=== PATIENT | male | born 1975 | race Hispanic/Latino ===

== ENCOUNTER 2016-09-08 06:18 | Day surgery (SDC) | payer OTHER ==
[2016-09-08] MEDS ORDERED: ECOTRIN PO ONE (06:50)
[2016-09-08] MEDS ORDERED: NACL 0.9% 500 ML 500 ML IV SCH (07:00)
[2016-09-08 07:13] LABS: Basophils % (Auto) 0.6 % (0.0-1.8); Eosinophils % (Auto) 1.2 % (0.0-4.3); Hematocrit 50.5 % (35.5-45.6); Hemoglobin 16.9 gm/dl (11.8-15.2); Mean Corpuscular HGB Conc 33 % (32-34); Mean Corpuscular Hemoglobin 28 pg (28-32); Mean Corpuscular Volume 84 fl (84-94); Platelet Count 165 K/mm3 (140-440); Red Blood Count 5.98 M/mm3 (3.65-5.03); White Blood Count 10.5 K/mm3 (4.5-11.0)
[2016-09-08 07:23] LABS: INR 0.94 (0.87-1.13)
[2016-09-08 07:29] LABS: Anion Gap 19 mmol/L; BUN/Creatinine Ratio 13.33; Blood Urea Nitrogen 12 mg/dL (9-20); Carbon Dioxide 27 mmol/L (22-30); Chloride 97.8 mmol/L (98-107); Glucose 115 mg/dL (75-100); Sodium 140 mmol/L (137-145)
[2016-09-08] MEDS ORDERED: HEPARIN/NS 5000 UNIT/500ML(CATH LAB) 1,000 ML IR ONE (09:29)
[2016-09-08] MEDS ORDERED: NITROGLYCERIN SYRINGE 3 ML ONE (09:30)
[2016-09-08] MEDS: SUBLIMAZE ONE ×2 (09:47→09:55)
[2016-09-08] MEDS: VERSED ONE ×2 (09:47→09:55)
[2016-09-08] MEDS: XYLOCAINE 2% INFILTRATI ONE ×2 (09:47→09:55)
[2016-09-08] MEDS: HEPARIN 10,000 UNITS/10 ML ONE ×2 (09:49→09:58)
[2016-09-08] MEDS: CALAN ONE ×2 (09:49→09:58)
--- NOTE | 2016-09-08 10:23 | Short Stay Summary ---
Short Stay Documentation - History H&P: obtained from office - Allergies and Medications Current Medications: Allergies latex Allergy (Verified 04/11/16 13:02) Rash Penicillins Allergy (Verified 04/11/16 13:02) Unknown morphine Adverse Reaction (Verified 04/11/16 13:02) Unknown Home Medications Medication Instructions Recorded Confirmed Last Taken Type Acetaminophen [Tylenol] 1,000 mg PO Q6HR 09/08/16 09/08/16 3 Days Ago History Ibuprofen [Motrin] 800 mg PO Q8HR PRN 09/08/16 09/08/16 3 Days Ago History Active Medications Sodium Chloride (Nacl 0.9% 500 Ml) 500 mls @ 50 mls/hr IV DIRECT TOMMY Stop: 09/08/16 16:59 Last Admin: 09/08/16 07:04 Dose: 50 mls/hr - Physical exam General appearance: no acute distress Integumentary: no rash HEENT: Atraumatic Lungs: Clear to auscultation Breasts: deferred Heart: Regular rate Gastrointestinal: normal Male Genitourinary: deferred Female Genitourinary: deferred Rectal Exam: deferred Extremities: no ischemia Neurological: Normal gait - Brief post op/procedure progress note Date of procedure: 09/08/16 Pre-op diagnosis: Atypical chest pain Post-op diagnosis: same Procedure: LHC, LV gram Anesthesia: MAC Findings: Normal coronaries, normal LV Surgeon: WAYNE FLOR Estimated blood loss: none Pathology: none Condition: stable - Hospital course Hospital course: Uneventful - Disposition Condition at discharge: Good Disposition: DISCHARGED TO HOME OR SELFCARE Short Stay Discharge Plan Activity: advance as tolerated Weight Bearing Status: Weight Bear as Tolerated Diet: regular
--- NOTE | 2016-09-08 10:49 | Cardiac Catherization Report ---
LEFT HEART CATHETERIZATION ORDERING PHYSICIAN: Osmani Cain MD INDICATION FOR PROCEDURE: Atypical chest pain, normal perfusion scan. PROCEDURES PERFORMED: 1. Selective left and right coronary angiography. 2. Left ventriculography. DESCRIPTION OF PROCEDURE: After obtaining written consent, the patient was draped using sterile technique. A 2% lidocaine was injected into the right wrist. A 5-[place] vascular sheath was inserted into the right radial artery. A 5-[place] catheter was used to selectively engage the left coronary artery. A 5-[place] JR4 catheter was used to selectively engage the right coronary artery. A 5-[place] JR4 catheter was used to hand inject the left ventriculogram. No complications occurred during the procedure. Hemostasis was achieved at the end of the procedure using manual pressure. ESTIMATED BLOOD LOSS: Minimal. SPECIMEN REMOVED: None. FINDINGS: HEMODYNAMICS: The aortic pressure was 119/72 with an LV systolic pressure of 124 mmHg and the left ventricular end-diastolic pressure of 17 mmHg. CARDIAC STRUCTURES: The left ventricle is normal in size and systolic function with the left ventricular ejection fraction estimated at 60%. CORONARY ANATOMY: 1. This is a right dominant circulation. 2. Left main is angiographically normal. 3. LAD is angiographically normal. 4. Left circumflex artery is angiographically normal. 5. Right coronary artery is angiographically normal. IMPRESSION: 1. Angiographically normal coronary circulation. 2. Normal left ventricular size and systolic function. 3. LVEDP measured at 17 mmHg. RECOMMENDATIONS: Follow up with referring product scientist. JOB# [id number] MARGO/MEHREEN
[2016-09-08 12:29] VITALS: BP 117/74
== END 2016-09-08 13:00 | disposition home or self-care (01) ==
LOC: OPU 06:18
PROVIDERS: ATTEND Internal Medicine Cardiovascular Disease
DX: R07.89 Other chest pain (principal)
CPT/HCPCS: 36415; 80048; 85025; 85610; 85730; 93005; 93010; 93458; C1887; C1894; J1644; J2250; J3010; J7040; Q9967